=== PATIENT | male | born 1990 | race Caucasian/White ===

== ENCOUNTER 2021-07-15 02:56 | Emergency (ER) | payer BC, OTHER ==
[2021-07-15] MEDS ORDERED: TETRACAINE HCL 0.5% 4ML OPTH ONE (03:16)
[2021-07-15] MEDS ORDERED: FLUORESCEIN SODIUM 1 MG/WRAP ONE (03:30)
[2021-07-15] MEDS ORDERED: TOBRAMYCIN SULF 0.3% OPTH OINT ONE (03:39)
--- NOTE | 2021-07-15 03:55 | EDPHYS ---
Physician Documentation [facility] Name: Josef Mendez Age: 31 yrs Sex: Male : 1990 Arrival Date: 07/15/2021 Time: 03:00 Bed 7 Private MD: ED Physician Fuad Reynoso HPI: 07/15 03:49 This 31 yrs old Male presents to ER via Ambulatory with complaints of Eye romulo Problem - Hard contact fragments. 03:49 The patient sustained a scratch, to the left eye. Onset: The symptoms/episode romulo began/occurred just prior to arrival, this morning. Duration: the symptoms are intermittent. Aggravated by blinking, opening eye. Associated signs and symptoms: Pertinent positives: None. Patient wears hard contact lenses. Severity of symptoms: At their worst the symptoms were moderate in the emergency department the symptoms are unchanged. The patient has not experienced similar symptoms in the past. Historical: - Allergies: 03:10 No Known Allergies; tw5 - Immunization history:: Flu vaccine is not up to date. Patient has never been vaccinated. - Social history:: Smoking status: Patient denies any tobacco usage or history of. - Family history:: not pertinent. ROS: 03:49 Constitutional: Negative for fever, chills, and weight loss, ENT: Negative for injury, romulo pain, and discharge, Neck: Negative for injury, pain, and swelling, Cardiovascular: Negative for chest pain, palpitations, and edema, Respiratory: Negative for shortness of breath, cough, wheezing, and pleuritic chest pain, Abdomen/GI: Negative for abdominal pain, nausea, vomiting, diarrhea, and constipation, Back: Negative for injury and pain, : Negative for injury, bleeding, discharge, and swelling, MS/Extremity: Negative for injury and deformity, Skin: Negative for injury, rash, and discoloration, Neuro: Negative for headache, weakness, numbness, tingling, and seizure, Psych: Negative for depression, anxiety, suicide ideation, homicidal ideation, and hallucinations, Allergy/Immunology: Negative for hives, rash, and allergies, Endocrine: Negative for neck swelling, polydipsia, polyuria, polyphagia, and marked weight changes, Hematologic/Lymphatic: Negative for swollen nodes, abnormal bleeding, and unusual bruising. 03:49 Eyes: Positive for pain, photophobia, redness, of the outer aspect of conjuctiva of left eye, iris of left eye and inner aspect of conjunctiva of left eye. Exam: 03:49 Constitutional: This is a well developed, well nourished patient who is awake, alert, romulo and in no acute distress. Head/Face: Normocephalic, atraumatic. ENT: Nares patent. No nasal discharge, no septal abnormalities noted. Tympanic membranes are normal and external auditory canals are clear. Oropharynx with no redness, swelling, or masses, exudates, or evidence of obstruction, uvula midline. Mucous membranes moist. Neck: Trachea midline, no thyromegaly or masses palpated, and no cervical lymphadenopathy. Supple, full range of motion without nuchal rigidity, or vertebral point tenderness. No Meningismus. Chest/axilla: Normal chest wall appearance and motion. Nontender with no deformity. No lesions are appreciated. Cardiovascular: Regular rate and rhythm with a normal S1 and S2. No gallops, murmurs, or rubs. Normal PMI, no JVD. No pulse deficits. Respiratory: Lungs have equal breath sounds bilaterally, clear to auscultation and percussion. No rales, rhonchi or wheezes noted. No increased work of breathing, no retractions or nasal flaring. Abdomen/GI: Soft, non-tender, with normal bowel sounds. No distension or tympany. No guarding or rebound. No evidence of tenderness throughout. Back: No spinal tenderness. No costovertebral tenderness. Full range of motion. Male : Normal genitalia with no discharge or lesions. Skin: Warm, dry with normal turgor. Normal color with no rashes, no lesions, and no evidence of cellulitis. MS/ Extremity: Pulses equal, no cyanosis. Neurovascular intact. Full, normal range of motion. Neuro: Awake and alert, GCS 15, oriented to person, place, time, and situation. Cranial nerves II-XII grossly intact. Motor strength 5/5 in all extremities. Sensory grossly intact. Cerebellar exam normal. Normal gait. Psych: Awake, alert, with orientation to person, place and time. Behavior, mood, and affect are within normal limits. 03:49 Eyes: Pupils: equal, round, and reactive to light and accomodation, Extraocular movements: intact throughout, Conjunctiva: injected, Corneas: abrasion, that is moderate sized, Sclera: injected. Vital Signs: 03:08 BP 145 / 96; Pulse 113; Resp 18; Temp 98; Pulse Ox 100% on R/A; Weight 106.59 kg; tw5 Height 5 ft. 11 in. (180.34 cm); Pain 4/10; 03:08 Body Mass Index 32.78 (106.59 kg, 180.34 cm) tw5 MDM: 03:04 Patient medically screened. romulo 03:53 Differential diagnosis: Corneal abrasion of left eye. Foreign body in. Data reviewed: [facility] vital signs, nurses notes. Data interpreted: threat monitoring analyst: rate is 113 beats/min, Pulse oximetry: on room air is 100 %. Counseling: I had a detailed discussion with the patient and/or guardian regarding: the historical points, exam findings, and any diagnostic results supporting the discharge/admit diagnosis, lab results, the need for outpatient follow up, for definitive care, an opthalmologist. 07/15 03:49 Order name: Eye Tray; Complete Time: 04:28 [facility] 07/15 03:49 Order name: Fluoresene Opth strip; Complete Time: 04:28 [facility] 07/15 03:49 Order name: Visual Acuity; Complete Time: 04:29 [facility] Administered Medications: 04:26 Drug: Cyclogyl Drops (1 %) 1 drops Route: Ophthalmic; Site: right eye; kd3 04:27 Drug: Tobramycin Ointment (0.3 %) 1 inches Route: Ophthalmic; Site: right eye; kd3 04:28 Drug: Tetracaine Drops 0.5 % 1 drops Route: Ophthalmic; Site: right eye; kd3 04:28 Not Given (pt left without medication ): [place] (HYDROcodone-acetaminophen) 10 mg-325 mg kd3 1 tabs PO once Disposition Summary: 07/15/21 03:54 Discharge Ordered Location: Home [facility] Problem: new [facility] Symptoms: have improved romulo Condition: Stable romulo Diagnosis - Injury of conjunctiva and corneal abrasion without foreign body, left eye romulo Followup: romulo - With: Private Physician - When: 2 - 3 days - Reason: Recheck today's complaints, Continuance of care, Re-evaluation by your physician Followup: romulo - With: Fernando Sahu MD - When: 2 - 3 days - Reason: Recheck today's complaints, Continuance of care, Re-evaluation by your physician Discharge Instructions: - Discharge Summary Sheet romulo - Corneal Abrasion romulo - Corneal Abrasion, [place]asy-[place]joi [facility] Forms: - Medication Reconciliation Form romulo - Thank You Letter romulo - Antibiotic Education romulo - Prescription Opioid Use [facility] Prescriptions: - Tylenol-Codeine #3 300 mg-30 mg Oral - take 2 tablet by ORAL route every 6 hours; 20 tablet; Refills: 0, Product romulo Selection Permitted - Tobrex 0.3 % Ophthalmic ointment - apply 1 inch ribbon by OPHTHALMIC route 3 times per day; 3.5 gram; Refills: 0, sb3 Product Selection Permitted Signatures: Fuad Reynoso MD MD cha Wood, Tiffany tw5 Kimberly Green RN RN kd3
--- NOTE | 2021-07-15 03:55 | ER ---
Nurse's Notes [facility] Name: Josef Mendez Age: 31 yrs Sex: Male : 1990 Arrival Date: 07/15/2021 Time: 03:00 Bed 7 Private MD: Diagnosis: Injury of conjunctiva and corneal abrasion without foreign body, left eye Presentation: 07/15 03:08 Chief complaint: Patient states: "I had a hard contact break off in my eye.". tw5 Coronavirus screen: Vaccine status: Patient reports receiving the 2nd dose of the covid vaccine. Moderna. Ebola Screen: Patient negative for fever greater than or equal to 101.5 degrees Fahrenheit, and additional compatible Ebola Virus Disease symptoms Patient denies exposure to infectious person. Patient denies travel to an Ebola-affected area in the 21 days before illness onset. Initial Sepsis Screen: Does the patient meet any 2 criteria? No. Patient's initial sepsis screen is negative. Does the patient have a suspected source of infection? No. Patient's initial sepsis screen is negative. Risk Assessment: Do you want to hurt yourself or someone else? Patient reports no desire to harm self or others. Onset of symptoms was July 15, 2021 at 00:00. 03:08 Method Of Arrival: Ambulatory tw5 03:08 Acuity: CAROLINE 3 tw5 Triage Assessment: 03:10 General: Appears uncomfortable, Behavior is calm, cooperative, appropriate for age. tw5 Pain: Complains of pain in left eye Pain currently is 4 out of 10 on a pain scale. Historical: - Allergies: 03:10 No Known Allergies; tw5 - Immunization history:: Flu vaccine is not up to date. Patient has never been vaccinated. - Social history:: Smoking status: Patient denies any tobacco usage or history of. - Family history:: not pertinent. Vital Signs: 03:08 BP 145 / 96; Pulse 113; Resp 18; Temp 98; Pulse Ox 100% on R/A; Weight 106.59 kg; tw5 Height 5 ft. 11 in. (180.34 cm); Pain 4/10; 03:08 Body Mass Index 32.78 (106.59 kg, 180.34 cm) tw5 ED Course: 03:00 Patient arrived in ED. jordy 03:04 Fuad Reynoso MD is Attending Physician. [facility] 03:10 Triage completed. tw5 03:10 Arm band placed on Patient placed in an exam room, on a stretcher. tw5 03:36 Nadine Rosales, EDVIN is Primary Nurse. ke1 03:55 Fernando Sahu MD is Referral Physician. romulo Administered Medications: 04:26 Drug: Cyclogyl Drops (1 %) 1 drops Route: Ophthalmic; Site: right eye; kd3 04:27 Drug: Tobramycin Ointment (0.3 %) 1 inches Route: Ophthalmic; Site: right eye; kd3 04:28 Drug: Tetracaine Drops 0.5 % 1 drops Route: Ophthalmic; Site: right eye; kd3 04:28 Not Given (pt left without medication ): [place] (HYDROcodone-acetaminophen) 10 mg-325 mg kd3 1 tabs PO once Outcome: 03:54 Discharge ordered by . [facility] 04:29 Patient left the ED. kd3 Signatures: Fuad Reynoso MD MD cha Wood, Tiffany tw5 Kimberly Green RN RN 3 Nadine Rosales RN RN ke1 Valarie Calhoun
[2021-07-15] MEDS ORDERED: CYCLOPENTOLATE 2% OPTH 2 ML ONE (03:56)
[2021-07-15] MEDS ORDERED: NA CHLORIDE 0.9% 500 ML ONE (04:05)
[2021-07-15 04:33] VITALS: BP 145/96; TEMP 98; O2SAT 100
== END 2021-07-15 04:29 | disposition home or self-care (01) ==
LOC: ER 02:56
DX: S05.02XA Injury of conjunctiva and corneal abrasion without foreign body, left eye, initial encounter (principal); X58.XXXA Exposure to other specified factors, initial encounter; Y93.9 Activity, unspecified; Y92.9 Unspecified place or not applicable
CPT/HCPCS: 99282; J7040